=== PATIENT | male | born 1990 | race Caucasian/White ===

== ENCOUNTER 2021-08-23 12:58 | Outpatient (CLI) | payer OTHER | END 2021-08-23 12:59 | disposition home or self-care (01) | LOC: CSHLAB 12:58 | PROVIDERS: ATTEND Internal Medicine Pulmonary Disease | DX: Z20.822 Contact with and (suspected) exposure to COVID-19 (principal); Z53.9 Procedure and treatment not carried out, unspecified reason ==

== ENCOUNTER 2021-08-24 12:51 | Outpatient (CLI) | payer OTHER ==
[2021-08-24 21:45] LABS: SARS-CoV-2 PCR by NAA Not Detected (NotDetected)
== END 2021-08-24 12:52 | disposition home or self-care (01) ==
LOC: CSHLAB 12:51
PROVIDERS: ATTEND Internal Medicine Pulmonary Disease
DX: Z20.822 Contact with and (suspected) exposure to COVID-19 (principal)
CPT/HCPCS: U0003; U0005

== ENCOUNTER 2021-08-29 12:49 | Outpatient (CLI) | payer OTHER | END 2021-08-29 12:50 | disposition home or self-care (01) | LOC: CSHCP 12:49 | PROVIDERS: ATTEND Chiropractor | DX: R06.02 Shortness of breath (principal) | CPT/HCPCS: 71046; 94060; 94760 ==